=== PATIENT | male | born 1945 | race Caucasian/White ===

== ENCOUNTER → 2016-10-21 | Outpatient (CLI) | payer MEDICARE ==
[2015-02-05 11:00] VITALS: BP 104/73
[~2016-10-21] MED LIST: ALLO300T PO; AMLO5TAB4 PO; ATOR40TA59 PO; ENOX40DI SQ; FLUT100D IH; GLIP5TAB10 PO; HYDR12.58 PO; LISI-334 PO; METF-620 PO; METO-269 PO; PRED-220 PO; PROAIR HFA8.5 GM INH; WARF5TAB7 PO
--- NOTE | 2016-10-21 16:05 | CARD ---
APPROVED REPORT EXAM: Two-dimensional and M-mode echocardiogram with Doppler and color Doppler. Other Information Quality : GoodHR: 76bpm Rhythm : PVC's INDICATION Dyspnea RISK FACTORS Hypertension Obesity Hyperlipidemia Diabetes 2D DIMENSIONS RVDd2.9 (2.9-3.5cm)Left Atrium(2D)4.5 (1.6-4.0cm) IVSd1.3 (0.7-1.1cm)Aortic Root(2D)2.6 (2.0-3.7cm) LVDd4.9 (3.9-5.9cm)LVOT Diameter2.2 (1.8-2.4cm) PWd1.2 (0.7-1.1cm)LVDs3.1 (2.5-4.0cm) FS (%) 38.2 %SV78.3 ml Aortic Valve AoV Peak Bautista.171.5cm/sAoV VTI40.1cm AO Peak GR.11.8mmHgLVOT Peak Bautista.129.9cm/s AO Mean GR.6mmHgAVA (VMAX)2.92cm2 Mitral Valve MV E Uvzwfykb393.9cm/sMV E Peak Gr.7mmHg MV DECEL [id number] A Xblosntz369.8cm/s MV E Mean Gr.3mmHgE/A Ratio1.4 MV A Ursnmskc74sa Pulmonary Valve PV Peak Hvsfavif959.4cm/s Pulmonary Vein S1 Ytmillmv29.7cm/sD2 Hibrsenv64.8cm/s PVa [id number] LEFT VENTRICLE The left ventricle is normal size. There is mild concentric left ventricular hypertrophy. The left ve ntricular systolic function is normal and the ejection fraction is within normal range. The Ejection Fraction is 55-60%. There is normal LV segmental wall motion. Transmitral Doppler flow pattern is Gra de II-pseudonormal filling dynamics. RIGHT VENTRICLE The right ventricle is normal size. There is normal right ventricular wall thickness. The right ventr icular systolic function is normal. ATRIA The left atrium is slightly dilated. The right atrium size is normal. The interatrial septum is intac t with no evidence for an atrial septal defect or patent foramen ovale as noted on 2-D or Doppler scarlet ging. AORTIC VALVE The aortic valve is mildly sclerotic. The aortic valve is trileaflet. Doppler and Color Flow revealed no significant aortic regurgitation. There is no significant aortic valvular stenosis. MITRAL VALVE Mitral annular calcification is mild. The mitral valve leaflets are calcified. There is no evidence o f mitral valve prolapse. There is no mitral valve stenosis. Doppler and Color Flow revealed trace sher ral regurgitation. TRICUSPID VALVE Doppler and Color Flow revealed no tricuspid valve regurgitation noted. PULMONIC VALVE Doppler and Color Flow revealed no pulmonic valvular regurgitation. There is no pulmonic valvular stephanie nosis. GREAT VESSELS The aortic root is normal in size. The ascending aorta is normal in size. The pulmonary artery is nor mal. The IVC is normal in size and collapses >50% with inspiration. PERICARDIAL EFFUSION There is no evidence of significant pericardial effusion. Critical Notification Critical Value: No <Conclusion> The left ventricle is normal size. The left ventricular systolic function is normal and the ejection fraction is within normal range. The Ejection Fraction is 55-60%. There is mild concentric left ventricular hypertrophy. There is no significant aortic valvular stenosis. Doppler and Color Flow revealed no significant aortic regurgitation. Doppler and Color Flow revealed trace mitral regurgitation. Doppler and Color Flow revealed no tricuspid valve regurgitation noted. There is no evidence of significant pericardial effusion.
== END | disposition home or self-care (01) ==
LOC: ECHO 10:36
PROVIDERS: ATTEND Internal Medicine Cardiovascular Disease
DX: I34.0 Nonrheumatic mitral (valve) insufficiency (principal); R06.00 Dyspnea, unspecified; I48.0 Paroxysmal atrial fibrillation
CPT/HCPCS: 93306

== ENCOUNTER → 2019-07-13 | Outpatient (CLI) | payer MEDICARE ==
[2015-02-05 11:00] VITALS: BP 104/73
[~2019-07-13] MED LIST changes: +ALBU2.5V8 INH; -METF-620 PO; +METF10007 PO; -PROAIR HFA8.5 GM INH; +WARF-31 PO; -WARF5TAB7 PO
--- NOTE | 2019-07-14 13:21 | CARD ---
MR#: [id number] Date of Study: 07/13/2019 Ordering Physician: GUDELIA JARQUIN, Referring Physician: GUDELIA JARQUIN, Tech: Lucero Montesinos [facility] APPROVED REPORT EXAM: Two-dimensional and M-mode echocardiogram with Doppler and color Doppler. Other Information Quality : GoodHR: 70bpm INDICATION Near syncope. Hx: Afib, HTN, HLP, DM. 2D DIMENSIONS RVDd4.2 (2.9-3.5cm)IVSd1.3 (0.7-1.1cm) Aortic Root(2D)3.3 (2.0-3.7cm)LVDd5.1 (3.9-5.9cm) LVOT Diameter2.0 (1.8-2.4cm)PWd1.1 (0.7-1.1cm) LVDs3.5 (2.5-4.0cm)FS (%) 31.7 % SV72.8 mlLVEF(%)59.5 (>50%) Aortic Valve AoV Peak Bautista.157.8cm/Pepper Peak GR.10.0mmHg LVOT Peak Bautista.116.3cm/sAVA (VMAX)2.30cm2 Mitral Valve MV E Zktxlqiy035.4cm/sMV DECEL [id number] MV A Jcumkqah37.2cm/sE/A Ratio1.9 MV A [id number] Pulmonary Valve PV Peak Ttwqxvzy934.6cm/s Tricuspid Valve RAP [id number] Pulmonary Vein S1 Wwtwlvyz29.8cm/sD2 Lqbzueqn32.0cm/s LEFT VENTRICLE The left ventricle is normal size. There is mild concentric left ventricular hypertrophy. The left ve ntricular systolic function is normal. The Ejection Fraction is 55% There is normal LV segmental wall motion. Transmitral Doppler flow pattern is Grade II-pseudonormal filling dynamics. RIGHT VENTRICLE The right ventricle is normal size. The right ventricular systolic function is normal. ATRIA Left atrium measures at the upper limits of normal. The right atrium size is normal. The interatrial septum is intact with no evidence for an atrial septal defect or patent foramen ovale as noted on 2-D or Doppler imaging. AORTIC VALVE The aortic valve is normal in structure and function. Leaflets are mildly thickened and calcified. No aortic regurgitation. No aortic valvular stenosis. MITRAL VALVE Mitral valve leaflets are mildly calcified. There is mild mitral annular calcification. There is no m itral valve stenosis. Trace mitral regurgitation. TRICUSPID VALVE The tricuspid valve is normal in structure and function. No tricuspid valve regurgitation noted. Ther e is no tricuspid valve stenosis. PULMONIC VALVE No pulmonic valvular regurgitation. There is no pulmonic valvular stenosis. GREAT VESSELS The aortic root is normal in size. The ascending aorta is normal in size. The IVC is normal in size a nd collapses >50% with inspiration. PERICARDIAL EFFUSION There is no evidence of significant pericardial effusion. Critical Notification Critical Value: No <Conclusion> The left ventricular systolic function is normal. The Ejection Fraction is 55% There is normal LV segmental wall motion. Signed by : Gudelia Jarquin, Electronically Approved : 07/13/2019 14:50:19
== END | disposition home or self-care (01) ==
LOC: ECHO 10:42
PROVIDERS: ATTEND Internal Medicine Cardiovascular Disease
DX: I08.0 Rheumatic disorders of both mitral and aortic valves (principal)
CPT/HCPCS: 93306

== ENCOUNTER → 2019-07-19 | Outpatient (CLI) | payer MEDICARE ==
[2015-02-05 11:00] VITALS: BP 104/73
== END | disposition home or self-care (01) ==
LOC: EKG 12:39
PROVIDERS: ATTEND Internal Medicine Cardiovascular Disease
DX: R55 Syncope and collapse (principal)
CPT/HCPCS: 93660